=== PATIENT | male | born 1945 | race Caucasian/White ===

== ENCOUNTER 2019-03-01 05:34 | Day surgery (SDC) | payer BC, OTHER ==
[2019-03-01] MEDS ORDERED: MOXIFLOXACIN HCL (OPHTH) 1 DROP DROPS ONE (05:52)
[2019-03-01] MEDS ORDERED: PROPARACAINE 0.5% OPHTH SOL 15 ML BTTL ONE (05:53)
[2019-03-01] MEDS ORDERED: TROP 1%/CYCLOPEN 1%/PHENYL 2% DROPS ONE (05:53)
[2019-03-01] MEDS ORDERED: MIDAZOLAM INJ 2 MG/2 ML VIAL ONE (08:29)
[2019-03-01] MEDS ORDERED: PROPARACAINE 0.5% OPHTH SOL 15 ML BTTL RIGHT_EYE ONE (08:37)
[2019-03-01] MEDS ORDERED: LIDOCAINE 1% 2 ML VIAL INJ ONE (08:45)
[2019-03-01] MEDS ORDERED: MOXIFLOXACIN HCL (OPHTH) 1 DROP DROPS RIGHT_EYE ONE ×2 (08:48→08:55)
[2019-03-01] MEDS ORDERED: DEXAMETHASONE 0.1% OPHTH SOL 1 DROP RIGHT_EYE ONE ×2 (08:48→08:56)
[2019-03-01] MEDS ORDERED: BRIMONIDINE 0.2% OPHTH DROPS RIGHT_EYE ONE ×2 (08:49→08:56)
[2019-03-01] MEDS ORDERED: TOBRAMYCIN SULF 0.3 % OPHT SOL 1 DROP RIGHT_EYE ONE ×2 (08:49→08:56)
== END 2019-03-02 09:43 | disposition home or self-care (01) ==
LOC: AMB 05:34
PROVIDERS: ATTEND Ophthalmology
DX: E11.36 Type 2 diabetes mellitus with diabetic cataract (principal); H25.11 Age-related nuclear cataract, right eye; I10 Essential (primary) hypertension; Z79.899 Other long term (current) drug therapy
CPT/HCPCS: 00142; 36416; 66984; 82948; J2250

== ENCOUNTER 2019-04-19 05:17 | Day surgery (SDC) | payer OTHER ==
[2019-04-19] MEDS ORDERED: MIDAZOLAM INJ 2 MG/2 ML VIAL ONE (06:52)
[2019-04-19] MEDS ORDERED: PROPARACAINE 0.5% OPHTH SOL 15 ML BTTL LEFT_EYE ONE (07:20)
[2019-04-19] MEDS ORDERED: MOXIFLOXACIN HCL (OPHTH) 1 DROP DROPS LEFT_EYE ONE ×2 (07:29→07:39)
[2019-04-19] MEDS ORDERED: LIDOCAINE 1% MPF 2 ML VIAL INJ ONE (07:29)
[2019-04-19] MEDS ORDERED: DEXAMETHASONE 0.1% OPHTH SOL 1 DROP LEFT_EYE ONE ×2 (07:29→07:40)
[2019-04-19] MEDS ORDERED: BRIMONIDINE 0.2% OPHTH DROPS LEFT_EYE ONE ×2 (07:30→07:40)
[2019-04-19] MEDS ORDERED: TOBRAMYCIN SULF 0.3 % OPHT SOL 1 DROP LEFT_EYE ONE ×2 (07:30→07:40)
== END 2019-04-19 08:13 | disposition home or self-care (01) ==
LOC: AMB 05:17
PROVIDERS: ATTEND Ophthalmology
DX: E11.36 Type 2 diabetes mellitus with diabetic cataract (principal); H25.12 Age-related nuclear cataract, left eye; I10 Essential (primary) hypertension; Z79.899 Other long term (current) drug therapy
CPT/HCPCS: 00142; 36416; 66984; 82948; J2250

== ENCOUNTER → 2020-02-10 | Outpatient (CLI) | payer MEDICARE ==
--- NOTE | 2020-02-11 08:00 | CT ---
EXAM DESCRIPTION: Abdoment/Pelvis w/o Contrast CLINICAL HISTORY: KIDNEYS COMPARISON: None. TECHNIQUE: Noncontrast transaxial CT images of the abdomen and pelvis are obtained. This exam was performed according to our departmental dose-optimization program, which includes automated exposure control, adjustment of the mA and/or kV according to patient size and/or use of iterative reconstruction technique . FINDINGS: Visualized lung bases show mild interstitial thickening. The heart is enlarged. Severe coronary artery calcifications. Trace pericardial effusion. Trace right pleural effusion in the costophrenic angle. Given the limitations of a noncontrast exam, diffuse nodularity of the liver capsule is seen. No focal mass is appreciated on noncontrast imaging. The spleen is normal size. Mild atrophy of pancreas. The adrenal glands and gallbladder are unremarkable. Moderate vascular calcifications. Abdominal aorta measures 2.1 cm. At least 3 less than 4 mm nonobstructing calcifications are seen in the midpole calyces of the right kidney. Nonobstructing calcifications in the left kidney are seen as follows: 11 mm left upper pole, 18 mm left mid pole, and multiple less than 3 mm calcifications in calyces throughout the kidney. Moderate area of cortical thinning in the mid and lower pole region of the left kidney are seen. Mild cortical thinning in the mid to lower pole the right kidney. No ureteral calcification or obstruction. Urinary bladder poorly distended. Mildly enlarged prostate with calcifications. Appendix is retrocecal and unremarkable. Stomach is poorly distended. No small bowel obstruction or bowel wall thickening. Moderate scattered diverticuli of the colon mainly in the descending to sigmoid region without associated inflammatory changes or fluid collections. Osseous structures show no aggressive bony lesions. Diffuse osteopenia is seen. Moderate spondylitic changes of the spine. Compression fracture deformities at T9, L1, and L5 are age indeterminate. Mildly enlarged periaortic and pericaval lymph nodes are seen measuring maximum 17 mm in the left periaortic region and 13 mm between the IVC and abdominal aorta. Mostly less than 1 cm short axis common and external iliac chain lymph nodes are seen right greater than left. 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 IMPRESSION: Right greater than left nonobstructing nephrolithiasis is seen. Focal areas of cortical thinning in the kidneys likely represent areas of cortical scarring. Moderate colon diverticulosis without CT evidence of diverticulitis. Mildly enlarged mostly retroperitoneal lymphadenopathy is seen. Differential includes reactive lymphadenopathy versus possible early lymphoma or lymphatic spread of neoplastic process. Center tissue sampling and/or short-term imaging follow-up. Other chronic findings as described above. Electronically signed by: Champ Morales MD 02/11/2020 7:58 AM CDT
== END ==
LOC: CT 09:37
PROVIDERS: ATTEND Internal Medicine Nephrology
DX: N18.4 Chronic kidney disease, stage 4 (severe) (principal); K57.30 Diverticulosis of large intestine without perforation or abscess without bleeding; N20.0 Calculus of kidney; R59.1 Generalized enlarged lymph nodes